=== PATIENT | female | born 1975 | race Two or more races ===

== ENCOUNTER 2019-01-06 14:49 | Emergency (ER) | payer MEDICAID, OTHER ==
[~2019-01-06] VITALS: Ht 152.4 cm; Wt 59.9 kg
[2019-01-06 14:57] VITALS: BP 140/91
[2019-01-06] MEDS ORDERED: LIDOCAINE 1% HCL (LOCAL ANESTH.) INJ 20ML MDV IJ ONE (17:00)
== END 2019-01-06 17:16 | disposition home or self-care (01) ==
LOC: ER 15:00
DX: S61.012A Laceration without foreign body of left thumb without damage to nail, initial encounter (principal); W26.0XXA Contact with knife, initial encounter; Y93.G9 Activity, other involving cooking and grilling; Y92.090 Kitchen in other non-institutional residence as the place of occurrence of the external cause; Y99.8 Other external cause status
CPT/HCPCS: 12001; 99283; J2001